=== PATIENT | male | born 1970 | race Caucasian/White ===

== ENCOUNTER 2017-12-29 15:41 | Inpatient (IN) ==
--- NOTE | 2017-12-29 16:40 | Emergency Department Note ---
Disposition Clinical Impression: Anxiety and depression Disposition: Still a Patient Condition: Fair Referrals: Mckenzie Willis MD [Primary Care Provider] - Forms: ED Satisfaction Letter Time of Disposition: 18:36 Psych HPI - General Chief Complaint: ED Medical Clearance Stated Complaint: med clearance Time Seen by Provider: 12/29/17 16:09 Source: patient Limitations: no limitations Nursing Notes Reviewed: Yes Vital Signs Reviewed: Yes - History of Present Illness HPI Narrative: Patient is a 47-year-old male presenting to [facility] ED for depression. Patient states is a chronic history of anxiety and depression patient states his symptoms of anxiety and depression and worsening for the past several days and that today he decided to go to the crisis Center in order to be evaluated. Patient was told to come to the ED for further workup. Patient denies SI/HI but states that he does have frequent thoughts "that everyone would be better off if I were gone". Patient denies headache, visual change, chest pain, shortness of breath, abdominal pain/nausea/vomiting/diarrhea, or generalized paresthesias. Patient has no complaints at this time. -Patient has a "pink slip" on file in clipboard from [facility]. Pt complaint: feels depressed If medical clearance, reason: psychiatric condition Onset (ago): day(s) Duration: intermittent History of similar episodes: Yes Alleged intoxication: No Associated Psychiatric Symptoms: depression Associated symptoms: Reports: denies other symptoms Traumatic symptoms: denies traumatic injury Treatments prior to arrival: none Self harm or harm to others: denies thoughts of harming self/others - Related Data Home Medications Medication Instructions Recorded Confirmed Sertraline [Zoloft] 150 mg PO DAILY 12/29/17 12/29/17 Allergies Allergy/AdvReac Type Severity Reaction Status Date / Time No Known Allergies Allergy Verified 12/29/17 15:57 All systems ED: reviewed and negative except as stated. Review of Systems: As Per HPI Constitutional: Denies: fever, chills, weakness Eyes: Denies: vision change Cardiovascular: Denies: chest pain Respiratory: Denies: dyspnea Gastrointestinal: Denies: abdominal pain, nausea, vomiting Neurological: Denies: headache, weakness, numbness, paresthesias Endocrine: Denies: fatigue Past Medical History - Past Medical History Medical history: Reports: no medical history - Social History Smoking Status: Never smoker Smokeless Tobacco Status: No Alcohol use: Reports: none Physical Exam - General Limitations: no limitations General appearance: alert, in no apparent distress - Head Head exam: atraumatic, normocephalic, normal inspection - Eye Eye exam: Present: normal appearance, PERRL, EOMI. Absent: scleral icterus, conjunctival injection - Neck Neck exam: Present: trachea midline - Chest Chest inspection: Present: normal inspection, symmetric chest wall rise - Respiratory Respiratory exam: Present: normal lung sounds bilaterally. Absent: respiratory distress, wheezes, stridor, accessory muscle use, prolonged expiratory phase - Cardiovascular Cardiovascular exam: Present: regular rate, normal rhythm, normal heart sounds, +S1, +S2. Absent: JVD, +S3, +S4 - Abdominal Exam Abdominal exam: Present: soft, Non-Tender, normal bowel sounds. Absent: distention, guarding, rebound, rigidity, organomegaly - Neurological Exam Neurological exam: Present: alert, oriented X3 - Psychiatric Psychiatric exam: Present: normal affect, normal mood - Skin Skin exam: Present: warm, dry, intact, normal color. Absent: cyanosis, diaphoresis Course Course Narrative: Patient requested for medical clearance by [facility]. CBC, CMP, Urine toxicology, Ethanol and acetaminophen levels assessed for potential overdose or underlying metabolic etiology. Patient denies trauma, ingestion, or other harm attempt prior to admission. Patient is medically cleared for psychiatric evaluation Vital Signs Temperature 98.5 F 12/29/17 15:57 Pulse Rate 92 12/29/17 15:57 Respiratory Rate 16 12/29/17 15:57 Blood Pressure 148/81 12/29/17 15:57 O2 Sat by Pulse Oximetry 95 12/29/17 15:57 Temperature 98.5 F 12/29/17 16:52 Pulse Rate 92 12/29/17 16:52 Respiratory Rate 16 12/29/17 16:52 Blood Pressure 148/81 12/29/17 16:52 O2 Sat by Pulse Oximetry 95 12/29/17 16:52 Oxygen Delivery Oxygen Delivery Room Air Psych - MDM Narrative Medical decision making narrative: 1747 hrs.: Patient's labs are back positive amphetamines and marijuana negative for alcohol. [facility] to see for evaluation and probable admission. - Lab Data Result diagrams: 12/29/17 16:21 12/29/17 16:21 Lab Results 11/14/18 11/14/18 11/14/18 Range/Units 16:10 16:21 16:21 WBC 9.5 (4.3-11.1) K/mcL RBC 4.49 (4.19-5.50) M/mcL Hgb 11.7 L (12.9-16.9) g/dL Hct 37.9 (37.5-50.1) % MCV 84.4 (83.0-100.0) fL MCH 26.1 L (28.0-33.3) pg MCHC 30.9 L (31.6-35.5) g/dL RDW 13.9 (11.5-14.5) % Plt Count 285 (140-400) K/mcL MPV 10.9 (9.4-12.4) fL Immature Gran % 0.4 (0-4) % Seg Neutrophils % 72.9 % Lymphocytes % 16.4 % Monocytes % 8.6 % Eosinophils % 1.2 % Basophils % 0.5 % Neutrophils # 6.9 (1.6-8.9) K/mcL Lymphocytes # 1.6 (0.6-4.6) K/mcL Monocytes # 0.8 (0.0-1.3) K/mcL Eosinophils # 0.1 (0.0-0.6) K/mcL Basophils # 0.1 (0.0-0.2) K/mcL Sodium 139 (136-145) mEq/L Potassium 4.0 (3.5-5.1) mEq/L Chloride 103 (98-107) mEq/L Carbon Dioxide 27 (23-29) mEq/L BUN 14 (6-20) mg/dL Creatinine 0.87 (0.70-1.30) mg/dL Est GFR ( Amer) > 60 (> 60) Est GFR (Non-Af Amer) > 60 (> 60) BUN/Creatinine Ratio 16 (6-26) Glucose 109 H (70-105) mg/dL Calculated Osmolality 289 (280-300) Calcium 8.8 (8.6-10.3) mg/dL Total Bilirubin 0.4 (0.3-1.0) mg/dL AST 13 (13-39) Units/L ALT 8 (7-52) Units/L Alkaline Phosphatase 65 (34-104) Units/L Serum Total Protein 6.7 (6.4-8.9) g/dL Albumin 3.9 (3.5-5.7) g/dL Globulin 2.8 (2.4-3.5) g/dL Albumin/Globulin Ratio 1.4 (1.1-2.2) Urine Opiates Screen Negative (Tnpazc=004) ng/mL Ur Barbiturates Screen Negative (Znkosb=514) ng/mL Ur Phencyclidine Scrn Negative (Cutoff=25) ng/mL Ur Amphetamines Screen Positive H (Czpvdp=5846) ng/mL U Benzodiazepines Scrn Negative (Ieignb=263) ng/mL Urine Cocaine Screen Negative (Cutoff= 300) ng/mL U Marijuana (THC) Screen Positive H (Cutoff = 50) ng/mL Ur Drug Screen Interp See Below Ethyl Alcohol < 10 (Less than 10) mg/dL Psychiatric Medical Clearance - Medical Clearance Checklist Medical History: No Social History Section defined Current Vitals: Last Vital Signs Temp 98.5 F 12/29/17 16:52 Pulse 92 12/29/17 16:52 Resp 16 12/29/17 16:52 BP 148/81 12/29/17 16:52 Pulse Ox 95 12/29/17 16:52 Psychiatric Lab Panel: Drug Levels and Toxicity 12/29/17 12/29/17 16:10 16:21 Urine Opiates Screen Negative Ur Barbiturates Screen Negative Ur Phencyclidine Scrn Negative Ur Amphetamines Screen Positive H U Benzodiazepines Scrn Negative Urine Cocaine Screen Negative U Marijuana (THC) Screen Positive H Ethyl Alcohol < 10 Abnormal Labs: Abnormal lab results Hgb 11.7 g/dL (12.9-16.9) L 12/29/17 16:21 MCH 26.1 pg (28.0-33.3) L 12/29/17 16:21 MCHC 30.9 g/dL (31.6-35.5) L 12/29/17 16:21 Glucose 109 mg/dL (70-105) H 12/29/17 16:21 Ur Amphetamines Screen Positive ng/mL (Okpcvt=9349) H 12/29/17 16:10 U Marijuana (THC) Screen Positive ng/mL (Cutoff = 50) H 12/29/17 16:10 Statement of Medical Clearance: I have evaluated the patient, reviewed diagnostic information, and certify that the patient's medical condition is sufficiently stable that transfer to the psychiatric unit does not pose a significant risk of deterioration. Attestation Statement - Attestation Attestation: This documentation is done with the assistance of Dragon dictation. Despite efforts made to ensure accuracy, there may be inaccuracies in donor services technician or spelling and typographical errors. I examined this patient and my medical decision-making was reviewed with the Resident Physician. I agree with the documented findings, disposition and treatment plan as described except to the extent set forth below. Patient seen and evaluated by Dr. Denny and myself, I agree with his evaluation and management plan, supervised the care the patient's stay. Patient presents today from the crisis Center. He has a pink slip in place from them. They wanted be a direct admit to [facility], however [facility] does not do that, he needs medical clearance here. Suicidal no plan. Getting a drug and alcohol screen and then we will speak with [facility] for clearance. Sitter is in place and 72 [address] hold is in place.
[2017-12-29 16:55] LABS: Ethanol < 10 mg/dL (Less than 10)
[2017-12-29 17:08] LABS: Amphetamine Screen,Urine Positive ng/mL (Cutoff=1000); Barbiturate Screen,Urine Negative ng/mL (Cutoff=200); Benzodiazepines Screen,Urine Negative ng/mL (Cutoff=200); Cannabinoid Screen,Urine Positive ng/mL (Cutoff = 50); Cocaine Screen,Urine Negative ng/mL (Cutoff= 300); Opiate Screen,Urine Negative ng/mL (Cutoff=300); Phencyclidine Screen,Urine Negative ng/mL (Cutoff=25)
[2017-12-29 18:19] LABS: Basophils # 0.1 K/mcL (0.0-0.2); Basophils % 0.5 %; Eosinophils # 0.1 K/mcL (0.0-0.6); Eosinophils % 1.2 %; Hematocrit 37.9 % (37.5-50.1); Hemoglobin 11.7 g/dL (12.9-16.9); Immature Granulocytes % 0.4 % (0-4); Lymphocytes # 1.6 K/mcL (0.6-4.6); Lymphocytes % 16.4 %; Mean Corpuscular HGB Conc 30.9 g/dL (31.6-35.5); Mean Corpuscular Hemoglobin 26.1 pg (28.0-33.3); Mean Corpuscular Volume 84.4 fL (83.0-100.0); Mean Platelet Volume 10.9 fL (9.4-12.4); Monocytes # 0.8 K/mcL (0.0-1.3); Monocytes % 8.6 %; Neutrophils # 6.9 K/mcL (1.6-8.9); Platelet Count 285 K/mcL (140-400); Red Blood Count 4.49 M/mcL (4.19-5.50); Red Cell Distribution Width 13.9 % (11.5-14.5); Segmented Neutrophils % 72.9 %
[2017-12-29 18:26] LABS: Alanine Aminotransferase 8 Units/L (7-52); Albumin 3.9 g/dL (3.5-5.7); Albumin/Globulin Ratio 1.4 (1.1-2.2); Alkaline Phosphatase 65 Units/L (34-104); Aspartate Amino Transferase 13 Units/L (13-39); BUN/Creatinine Ratio 16 (6-26); Bilirubin,Total 0.4 mg/dL (0.3-1.0); Blood Urea Nitrogen 14 mg/dL (6-20); Calcium 8.8 mg/dL (8.6-10.3); Carbon Dioxide 27 mEq/L (23-29); Chloride 103 mEq/L (98-107); Globulin 2.8 g/dL (2.4-3.5); Glucose 109 mg/dL (70-105); Osmolality,Calculated 289 (280-300); Sodium 139 mEq/L (136-145); Total Protein 6.7 g/dL (6.4-8.9); eGFR For Non-African Americans > 60 (> 60)
[2017-12-29] MEDS ORDERED: *HR* LORazepam 1 MG TABLET PO PRN (19:01)
[2017-12-29] MEDS ORDERED: hydrOXYzine pamoate 25 MG CAPSULE PO PRN (19:01)
[2017-12-29] MEDS ORDERED: MOM Conc 10 ML UD.LIQ PO PRN (19:01)
[2017-12-29] MEDS ORDERED: Ibuprofen 400 MG TABLET PO PRN (19:01)
[2017-12-29] MEDS ORDERED: Haloperidol Lactate 5 MG/ML VIAL IM PRN (19:01)
[2017-12-29] MEDS ORDERED: *HR* LORazepam 2 MG/ML VIAL IM PRN (19:01)
[2017-12-29] MEDS ORDERED: Mag Hydrox/Al Hydrox/Simeth 30 ML UDC PO PRN (19:01)
[2017-12-29] MEDS ORDERED: traZODone 50 MG TABLET PO PRN (19:01)
--- NOTE | 2017-12-30 16:51 | Psychiatry History & Physical ---
Date of Encounter: 12/30/17 Time of Encounter: 16:45 History of Present Illness Patient Stated Chief Complaint: I get nervous, some days I think about dying Medicare Admission Attestation: For traditional Medicare patients the provided hospital inpatient services are reasonable and necessary and in the case of services not specified as inpatient-only under 42 CFR 419.22 (n), that they are appropriately provided as inpatient services in accordance 42 CFR 412.3. For Critical Access Hospital the patient may reasonably be expected to be discharged or transferred to a hospital within 96 hours after admission to the Critical Access Hospital. Admitted From: Emergency Dept Plans for Post Hospital Care: Home History of Present Illness: Mr. Kapadia is a 47 year old male The patient is a 47-year-old white male. Chief complaint: I feel room bad sometimes and I think about killing myself. I have a lot of anxiety. History of present illness. The patient has had no previous psychiatric treatment or hospitalization. He went to his primary care physician and was initially treated with Zoloft first 50 mg than 100 mg a night 150 mg. He has been on it for 6 months and he feels that he is no better he notes no side effects has low mood diminished self-esteem good interest guilt and rumination and he has been losing weight this is 105 pounds over 7 months despite diet and work out because the gym 5-7 times per week his energy okay his okay his concentration is okay his appetite is good and knees on salads and an Atkins diet he sleeps 5 hours per night he has suicidal ideation once in a while specific plan or the patient is worked regularly at his job and has been there almost 4 years. The patient has recurrent worries and panic sometimes his heart rate is fast. When asked about obsessions or compulsions he has no cleaning counting checking collecting her confessing he does however have jealous obsessions and is concerned about his and his location compulsive tics sting calling and arguing over her whereabouts is been part of this. The patient has never had any counseling no previous suicide attempts. Past medical history surgeries removal of wisdom teeth illnesses right knee pain with possible arthritis NKDA and ibuprofen when necessary most every day he takes 600 800 Family history is negative for psychiatric illness for alcohol one uncle Keaton drank too much but is negative for drug abuse. A maternal grandmother attempted suicide by cutting her wrists and then shot herself. 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 More recently he was laid off and started working for [employer] 4 years ago. His first marriage was 4- 5 years and their 3 children from that marriage the marriage ended due to his jealous behavior and his 's infidelity. He had a 10 year period of time where he was not and for the last 8 years is been to his second Michaela. He now accuses Michaela of being late having affairs and he wants to identify any problematic behaviors because he does not want to catch her unfaithful. He has a stepdaughter who is 12 and turning 13. Review of systems. The patient reports some difficulty with DD and was prescribed medicines for this but this is now better with the weight loss. He identifies many of the features morbid jealousy. He is on Adipex for weight loss Past Med Surg Social Fam HX - Past Medical History Medical history: no medical history - Past Psychiatric History Psychiatric history: Reports: depression Family psychiatric history: Yes Family History of Suicide: Attempted - Past Surgical History Surgical History: no surgical history, other - Social History Smoking Status: Former smoker Smokeless Tobacco Status: No Alcohol use: none Drug use: marijuana Occupational status: employed Current living situation: Home - Independent Activity Level: Independent ambulation Recent Out of Country Travel Within the Last 8 Weeks: Yes Exposure or Possible Exposure to Illness During Travel: Yes Medications & Allergies Sertraline [Zoloft] 150 mg PO DAILY 12/29/17 [History] Allergy/AdvReac Type Severity Reaction Status Date / Time No Known Allergies Allergy Verified 12/29/17 15:57 Review of Systems Constitutional: Reports: weight change Eyes: Denies: eye pain, vision change Ears, Nose, Throat: Denies: ear pain, throat pain, dental pain, hearing loss, congestion Cardiovascular: Reports: palpitations Respiratory: Denies: cough, dyspnea, wheezes Gastrointestinal: Denies: abdominal pain, nausea, vomiting, diarrhea, constipation Genitourinary male: Reports: other Musculoskeletal: Reports: joint pain, myalgia Neurological: Denies: headache, weakness, numbness, memory loss Psychiatric: Reports: depression, suicidal ideation, mood swings, panic attacks Endocrine: Denies: fatigue, heat or cold intolerance Hematologic/Lymphatic: Denies: easy bruising, lymphadenopathy Allergic/Immunologic: Denies: urticaria, itchy eyes Exam - HEENT Head exam IM: Present: atraumatic Eye exam IM: Present: EOMI, normal appearance, PERRL ENT exam IM: Present: normal exam - Neurological Neurological exam: Present: CN II-XII intact - Respiratory Respiratory exam IM: Present: CTAB - GI/Abdominal GI/Abdominal exam IM: Present: normal bowel sounds, soft. Absent: tenderness - Extremities Extremities exam IM: Present: full ROM - Skin Skin exam IM: Present: dry, pallor, warm - Constitutional Vitals: Temp Pulse Resp BP Pulse Ox 97.8 F 74 16 119/75 97 12/30/17 09:00 12/30/17 09:00 12/30/17 09:00 12/30/17 09:00 12/30/17 09:00 General appearance: age & developmentally appropriate, well-groomed, well- nourished, obese - Musculoskeletal Gait: normal Station: relaxed Strength & Tone: normal for patient - Psychiatric Patient Orientation: Yes Person, Yes Time, Yes Place Level of alertness: Alert Behavior: calm, cooperative Psychomotor activity: Normal Eye Contact: Maintains Eye Contact Mood Description: Euthymic/stable Affect description: congruent with mood, full range Speech Volume: Normal Speech pattern: normal rate, normal rhythm, normal tone, fluent, spontaneous Language & Vocabulary: consistent with education Thought Process: Linear, Goal Oriented Thought Content: Yes Suicidal ideation, No Homicidal ideation, No Overt delusions, Yes Obsessive thoughts, Yes Guilt Perceptual Disturbances: No Auditory hallucinations, No Visual hallucinations Attention Span Ability: Capable of Focused Attention Memory Description: Grossly Intact Patient Reliability: Questionable Historian Fund of knowledge: Yes abstraction ability, Yes below average Intelligence Estimate: Average Judgment: Fair Insight: Partial Results - Drug Levels and Toxicology Drug Levels and Toxicology: Drug Levels and Toxicity 12/29/17 12/29/17 16:10 16:21 Urine Opiates Screen Negative Ur Barbiturates Screen Negative Ur Phencyclidine Scrn Negative Ur Amphetamines Screen Positive H U Benzodiazepines Scrn Negative Urine Cocaine Screen Negative U Marijuana (THC) Screen Positive H Ethyl Alcohol < 10 - Labs Labs: Laboratory Last Values WBC 9.5 K/mcL (4.3-11.1) 12/29/17 16:21 RBC 4.49 M/mcL (4.19-5.50) 12/29/17 16:21 Hgb 11.7 g/dL (12.9-16.9) L 12/29/17 16:21 Hct 37.9 % (37.5-50.1) 12/29/17 16:21 MCV 84.4 fL (83.0-100.0) 12/29/17 16:21 MCH 26.1 pg (28.0-33.3) L 12/29/17 16:21 MCHC 30.9 g/dL (31.6-35.5) L 12/29/17 16:21 RDW 13.9 % (11.5-14.5) 12/29/17 16:21 Plt Count 285 K/mcL (140-400) 12/29/17 16:21 MPV 10.9 fL (9.4-12.4) 12/29/17 16:21 Immature Gran % 0.4 % (0-4) 12/29/17 16:21 Seg Neutrophils % 72.9 % 12/29/17 16:21 Lymphocytes % 16.4 % 12/29/17 16:21 Monocytes % 8.6 % 12/29/17 16:21 Eosinophils % 1.2 % 12/29/17 16:21 Basophils % 0.5 % 12/29/17 16:21 Neutrophils # 6.9 K/mcL (1.6-8.9) 12/29/17 16:21 Lymphocytes # 1.6 K/mcL (0.6-4.6) 12/29/17 16:21 Monocytes # 0.8 K/mcL (0.0-1.3) 12/29/17 16:21 Eosinophils # 0.1 K/mcL (0.0-0.6) 12/29/17 16:21 Basophils # 0.1 K/mcL (0.0-0.2) 12/29/17 16:21 Sodium 139 mEq/L (136-145) 12/29/17 16:21 Potassium 4.0 mEq/L (3.5-5.1) 12/29/17 16:21 Chloride 103 mEq/L (98-107) 12/29/17 16:21 Carbon Dioxide 27 mEq/L (23-29) 12/29/17 16:21 BUN 14 mg/dL (6-20) 12/29/17 16:21 Creatinine 0.87 mg/dL (0.70-1.30) 12/29/17 16:21 Est GFR ( Amer) > 60 (> 60) 12/29/17 16:21 Est GFR (Non-Af Amer) > 60 (> 60) 12/29/17 16:21 BUN/Creatinine Ratio 16 (6-26) 12/29/17 16:21 Glucose 109 mg/dL (70-105) H 12/29/17 16:21 Calculated Osmolality 289 (280-300) 12/29/17 16:21 Calcium 8.8 mg/dL (8.6-10.3) 12/29/17 16:21 Total Bilirubin 0.4 mg/dL (0.3-1.0) 12/29/17 16:21 AST 13 Units/L (13-39) 12/29/17 16:21 ALT 8 Units/L (7-52) 12/29/17 16:21 Alkaline Phosphatase 65 Units/L (34-104) 12/29/17 16:21 Serum Total Protein 6.7 g/dL (6.4-8.9) 12/29/17 16:21 Albumin 3.9 g/dL (3.5-5.7) 12/29/17 16:21 Globulin 2.8 g/dL (2.4-3.5) 12/29/17 16:21 Albumin/Globulin Ratio 1.4 (1.1-2.2) 12/29/17 16:21 Urine Opiates Screen Negative ng/mL (Cdtzke=823) 12/29/17 16:10 Ur Barbiturates Screen Negative ng/mL (Pxifao=790) 12/29/17 16:10 Ur Phencyclidine Scrn Negative ng/mL (Cutoff=25) 12/29/17 16:10 Ur Amphetamines Screen Positive ng/mL (Lhvvvc=7728) H 12/29/17 16:10 U Benzodiazepines Scrn Negative ng/mL (Nchyqv=010) 12/29/17 16:10 Urine Cocaine Screen Negative ng/mL (Cutoff= 300) 12/29/17 16:10 U Marijuana (THC) Screen Positive ng/mL (Cutoff = 50) H 12/29/17 16:10 Ur Drug Screen Interp See Below 12/29/17 16:10 Ethyl Alcohol < 10 mg/dL (Less than 10) 12/29/17 16:21 Assessment and Plan (1) Major depressive disorder, recurrent severe without psychotic features Current visit: Yes Status: Acute Plan: Admit inpatient for safety and stabilization, Close observation, Suicide Precautions per unit protocol, Encourage participation in unit milieu, Secure weapons Risks, benefits, side effects, alternatives discussed w/pt: Yes Patient agreeable to treatment: Yes Estimated Length of Stay (Days): 3 (2) Partner relational problem Current visit: Yes Status: Acute Plan: Admit inpatient for safety and stabilization, Suicide Precautions per unit protocol, Secure weapons Risks, benefits, side effects, alternatives discussed w/pt: Yes Patient agreeable to treatment: Yes Plans for Post Hospital Care: Home (3) Suicidal ideations Current visit: Yes Status: Acute Plan: Admit inpatient for safety and stabilization, Close observation, Suicide Precautions per unit protocol, Secure weapons Risks, benefits, side effects, a lternatives discussed w/pt: Yes Patient agreeable to treatment: Yes
[2017-12-30] MEDS ORDERED: ARIPiprazole 2 MG TABLET PO SCH (21:00)
[2017-12-31 09:15] VITALS: BP 128/72
--- NOTE | 2017-12-31 11:50 | Discharge Summary ---
Date of Encounter: 12/31/17 Time of Encounter: 11:45 Diagnosis - Discharge Diagnosis (1) Major depressive disorder, recurrent severe without psychotic features Priority: Primary Status: Acute (2) Partner relational problem Priority: Secondary Status: Acute (3) Suicidal ideations Priority: Secondary Status: Resolved Medications - Discharge Medications Prescriptions: ARIPiprazole [Abilify] 2 mg PO HS 30 Days #30 tablet Sertraline [Zoloft] 150 mg PO DAILY 30 Days #45 tablet ARIPiprazole [Abilify] 2 mg PO HS 30 Days #30 tablet 12/31/17 [Rx] Sertraline [Zoloft] 150 mg PO DAILY 30 Days #45 tablet 12/31/17 [Rx] Allergy/AdvReac Type Severity Reaction Status Date / Time No Known Allergies Allergy Verified 12/29/17 15:57 Results Procedures and tests throughout hospitalization: Completed Lab Orders Category Date Time Status Complete Blood Count [HEME] Stat Lab 12/29/17 16:21 Completed Comprehensive Metabolic Panel Stat Lab 12/29/17 16:21 Completed Drug Screen, Urine [UCHEM] Stat Lab 12/29/17 16:10 Completed Ethanol Stat Lab 12/29/17 16:21 Completed Provider Date of admission: 12/29/17 18:58 Primary care physician: PCP NONE Discharging clinician: Terry Abdi Psychiatry Exam - Constitutional Vitals: Temp Pulse Resp BP Pulse Ox 98.5 F 97 16 128/72 97 12/31/17 09:00 12/31/17 09:00 12/31/17 09:00 12/31/17 09:00 12/30/17 20:48 General appearance: age & developmentally appropriate, well-groomed, well- nourished - Musculoskeletal Gait: normal Station: relaxed Strength & Tone: normal for patient - Psychiatric Patient Orientation: Yes Person, Yes Time, Yes Place Level of alertness: Alert Behavior: calm, cooperative Psychomotor activity: Normal Eye Contact: Maintains Eye Contact Mood Description: Anxious Affect description: congruent with mood, full range Speech Volume: Normal Speech pattern: normal rate, normal rhythm, normal tone, fluent, spontaneous Language & Vocabulary: consistent with education Thought Process: Linear, Goal Oriented Thought Content: No Suicidal ideation, No Homicidal ideation, No Overt delusions, Yes Obsessive thoughts Perceptual Disturbances: No Auditory hallucinations, No Visual hallucinations Attention Span Ability: Capable of Focused Attention Memory Description: Grossly Intact Patient Reliability: Reliable Historian Fund of knowledge: Yes abstraction ability, Yes aware of current events Intelligence Estimate: Average Judgment: Fair Insight: Partial Hospital Course Hospital course: Mr. Kapadia is a 47 year old male The patient prefers to be called Carlos. Chief complaint I guess I was nervous and depressed sometimes I walked off the job. History of present illness the patient was admitted for a diagnosis of major depression. He was very anxious and had thoughts of suicide. While he did not have a specific plan he noted on today's about how he might kill himself although he had no particular method at the time that admitted. Nonetheless the patient appeared anxious and agitated [facility] and later cleared by the emergency room. It is important to note that the patient is on the medicine Adipex prescribed for weight loss. The patient been successful with weight loss by diet and exercise he follows an Atkins type of diet or salads. Nonetheless, the patient has a history of morbid jealousy. This jealousy existed or emerged at the time of this first marriage. His first was unfaithful. The patient then was and single for 10 years. He did not have significant problems with morbid jealousy without a relationship. The patient remarried and jealous concerns of continued. This is caused internal strife and difficulties in the domestic relationship. The patient has a variety of behaviors including checking on his 's whereabouts checking to see who she is with recurrently thinking about the possibility of unfaithfulness in spite of her attempts to reassure him. At times this is been so stressful he is left his work environment. There was no report of homicidal ideation significant domestic disturbance other than arguments. The patient was receptive to the diagnosis of major depressive disorder. While the patient has recurrent jealous thinking he does not hold delusional intensity. It was felt that this was a manifestation of his major depression and that he had not responded to Zoloft. Abilify was added 2 mg on December 30 and the patient tolerated this he reported that he felt better and no longer had suicidal ideation he was anxious to return to work. He discussed his treatment options and need for counseling with his by phone. Patient was scheduled for follow-up counseling in about 1 month's after discharge. He reported that he was aware of the side effects. The patient asked about release to go back to work an FMLA so that he may address this medical condition. The patient had no suicidal ideation on the day of discharge he was discharged home. He verbalized understanding Does patient wish to continue nicotine replacement upon disc: No - Time Spent with Patient Total time spent providing and/or coordinating discharge services: Less than 30 minutes Assessment and Plan - Patient/Caregiver Discharge Instructions Activity: resume usual activities as tolerated Diet: regular diet - Follow up Plan Follow up with: [facility] [Other] (Please contact [facility] at the above phone number and schedule a follow up appointment with her at the time of discharge. ) [facility] [Outside] - 02/02/18 10:00 am (The above appointment is with Dr. Shea for outpatient psychiatric assessment and medication management services. Please arrive 10 minutes early to complete the check-in process. Please bring your insurance card and photo ID. If you are unable to keep this appointment, 24 hour business notice of cancellation is expected. If you miss your new patient appointment with any provider without providing appropriate notice, you cannot be re-scheduled for that service. The above appointment(s) reflects first availability. You may contact the office regularly to check for cancellations that may allow you to be seen sooner. The [facility] is the 1st building behind [facility] in [place], [place]. Please do not use GPS or mapping apps to locate the office, as they will take you to the wrong location. ) Functional capacity at discharge: independent ambulation Overall status at discharge: Stable Disposition: Home, Self-Care Quality - Multiple Antipsychotics Patient discharged on 2 or more antipsychotic medications: No Procedures - Procedures Procedures: Medication Management, Crisis Stabilization, Supportive Therapy, Group Therapy, Psychoeducational Therapy
== END 2017-12-31 13:40 | disposition home or self-care (01) | DRG 885 ==
LOC: EMEROOARM 15:41 → 1ANU 18:58
PROVIDERS: ADMIT Psychiatry & Neurology Forensic Psychiatry; ATTEND Psychiatry & Neurology Forensic Psychiatry